=== PATIENT | male | born 1955 | race Caucasian/White ===

== ENCOUNTER 2018-06-09 22:40 | Emergency (ER) | payer BC ==
[~2018-06-09] VITALS: Ht 182.9 cm; Wt 140.6 kg
--- OUTSIDE RECORDS SUMMARY | 2018-06-09 22:44 | XMS REPORT ---
Author Author YAYA GATES [facility] Address [address] [place] [address] Care Team Providers Care Security Sme Name Role Phone YAYA GATES Unavailable PROBLEMS Type Condition ICD9-CM Code XCQ95-LD Code Onset Dates Condition Status SNOMED Code Problem Dental examination Z01.20 Active [id number] ALLERGIES No Known Allergies SOCIAL HISTORY Never Assessed PLAN OF CARE Activity Details Follow Up [facility]AN Reason:MILKA/possible restorative VITAL SIGNS Blood pressure systolic 123 mmHg 2016-11-07 Blood pressure diastolic 71 mmHg 2016-11-07 MEDICATIONS Medication Instructions Dosage Frequency Start Date End Date Duration Status Bystolic 5 MG Orally Once a day 1 tablet 24h Active Amlodipine Besylate 10 MG Orally Once a day 1 tablet 24h Active Meloxicam 15 MG Orally Once a day 1 tablet 24h Active Benicar 40 MG Orally Once a day 1 tablet 24h Active RESULTS No Results PROCEDURES Procedure Date Ordered Result Body Site INTRAORL-PERIAPICAL 1 FILM [id number] November 07, 2016 INTRAORL-PERIAPICAL 1 FILM [id number] November 07, 2016 Billing Notes on claim November 07, 2016 PROPHYLAXIS - ADULT November 07, 2016 [facility] Employee/Board adjustment November 07, 2016 INTRAORL-PERIAPICAL 1 FILM [id number] November 07, 2016 INTRAORL-PERIAPICAL 1 FILM [id number] November 07, 2016 PANORAMIC FILM SEE ALSO CODE 08139 November 07, 2016 BITEWINGS - FOUR FILMS November 07, 2016 IMMUNIZATIONS No Known Immunizations MEDICAL (GENERAL) HISTORY Type Description Date Medical History HTN Surgical History left total knee replacement 06/19/2016 Surgical History appendectomy 1985 Hospitalization History see above surgeries
--- OUTSIDE RECORDS SUMMARY | 2018-06-09 22:44 | XMS REPORT | Continuity of Care Document ---
Author Author [facility] Organization [facility] Address Unknown Phone Unavailable Allergies There is no data. Medications There is no data. Problems There is no data. Procedures There is no data. Results There is no data. Encounters ACCT No. Visit Date/Time Discharge Status Pt. Type Provider Facility Loc./Unit Complaint [id number] 04/07/2013 13:29:00 04/07/2013 23:59:59 [facility] Outpatient [id number] 07/28/2010 07:59:00 07/28/2010 23:59:59 [facility] Outpatient FLAVIO MADDOX DDS
[2018-06-10] MEDS ORDERED: ONDANSETRON 4 MG/2 ML (SDV) Z0FRAN IVP ONE
[2018-06-10] MEDS ORDERED: PIPERACILLIN SODIUM/TAZOBACTAM 4.5 GM in NS (IVPB) 100 ML IV ONE ×2
[2018-06-10 00:02] LABS: BASOPHILS % (AUTO) 0 % (0-10); EOSINOPHILS % (AUTO) 0 % (0-10); HEMATOCRIT 47 % (40-54); HEMOGLOBIN 16.5 G/DL (13.3-17.7); LYMPHOCYTES # (AUTO) 0.5 X 10^3 (1.0-4.0); LYMPHOCYTES % (AUTO) 5 % (12-44); MEAN CORPUSCULAR HEMOGLOBIN 32 PG (25-34); MEAN CORPUSCULAR HGB CONC 35 G/DL (32-36); MEAN CORPUSCULAR VOLUME 91 FL (80-99); MEAN PLATELET VOLUME 11.1 FL (7.4-10.4); MONOCYTES # (AUTO) 0.9 X 10^3 (0.0-1.0); MONOCYTES % (AUTO) 10 % (0-12); NEUTROPHILS # (AUTO) 7.7 X 10^3 (1.8-7.8); NEUTROPHILS % (AUTO) 85 % (42-75); PLATELET COUNT 115 10^3/uL (130-400); RED BLOOD COUNT 5.15 10^6/uL (4.35-5.85); RED CELL DISTRIBUTION WIDTH 13.7 % (10.0-14.5); WHITE BLOOD COUNT 9.1 10^3/uL (4.3-11.0)
[2018-06-10 00:22] LABS: BUN/CREATININE RATIO 12; CARBON DIOXIDE 23 MMOL/L (21-32); CHLORIDE 103 MMOL/L (98-107); CREATININE SERUM 1.01 MG/DL (0.60-1.30); POTASSIUM 3.8 MMOL/L (3.6-5.0); SODIUM 138 MMOL/L (135-145)
[2018-06-10 00:23] LABS: ALANINE AMINOTRANSFERASE 27 U/L (0-55); ALBUMIN 3.9 GM/DL (3.2-4.5); ALKALINE PHOSPHATASE 70 U/L (40-136); BILIRUBIN,TOTAL 1.8 MG/DL (0.1-1.0); CALCIUM 9.2 MG/DL (8.5-10.1); GFR ESTIMATED > 60; GLUCOSE 114 MG/DL (70-105); TOTAL PROTEIN 7.1 GM/DL (6.4-8.2)
[2018-06-10 00:35] LABS: BAND NEUTROPHILS 4 %; LYMPHOCYTES % (MANUAL) 3 %; MONOCYTES % (MANUAL) 7 %; NEUTROPHILS % (MANUAL) 86 %; RBC MORPH NORMAL
[2018-06-10 00:48] LABS: INR 1.1 (0.8-1.4); PROTHROMBIN TIME PATIENT 13.8 SEC (12.2-14.7)
[2018-06-10] MEDS ORDERED: CEPH-507 PO (01:08)
--- NOTE | 2018-06-10 01:08 | ED General ---
General Chief Complaint: Skin/Wound Problems Stated Complaint: L LEG REDNESS Nursing Triage Note: Cellulitis to left leg since this morning. Pt has not felt good this weekend with nausea and chills. Pt stated it was from knee down and sore. Pt's leg is red, warm and tender to touch. Nursing Sepsis Screen: No Definite Risk Source of Information: Patient Exam Limitations: No Limitations History of Present Illness Date Seen by Provider: Jun 09, 2018 Time Seen by Provider: 23:53 Initial Comments This 62-year-old gentleman presents to the emergency room with complaints of left lower leg pain and erythema suggestive of cellulitis. Symptoms are present from the ankle to just below the knee. He has not been feeling well for couple of days. He has felt chilled and nauseated. He denies any actual fever. The leg is tender even to light palpation. Allergies and Home Medications Allergies Coded Allergies: No Known Drug Allergies (Unverified , 06/09/18) Home Medications Cephalexin 500 Mg Capsule, 500 MG PO QID Prescribed by: ANIBAL VILLASEÑOR on 06/10/18 0108 Patient Home Medication List Home Medication List Reviewed: Yes Review of Systems Review of Systems Constitutional: see HPI EENTM: no symptoms reported Respiratory: no symptoms reported Cardiovascular: no symptoms reported Gastrointestinal: see HPI Genitourinary: no symptoms reported Musculoskeletal: no symptoms reported Skin: see HPI Psychiatric/Neurological: No Symptoms Reported Hematologic/Lymphatic: No Symptoms Reported Immunological/Allergic: no symptoms reported Past Actyrqt-Iaxqal-Gjetqk Hx Patient Social History Recent Foreign Travel: No Contact w/Someone Who Travel: No Recent Infectious Disease Expo: No Past Medical History Surgeries: No Respiratory: No Cardiac: Yes Hypertension Neurological: No Reproductive Disorders: No Genitourinary: No Gastrointestinal: No Musculoskeletal: No Endocrine: No HEENT: No Cancer: No Psychosocial: No Integumentary: No Physical Exam Vital Signs Vital Signs - First Documented 06/09/18 23:15 Temp 99.4 Pulse 101 Resp 20 B/P (MAP) 139/96 (110) Pulse Ox 95 O2 Delivery Room Air Capillary Refill : Less Than 3 Seconds Height, Weight, BMI Height: 6'0" Weight: 310lbs. oz. 140.560063ad; BMI Method:Stated General Appearance: No Apparent Distress, WD/WN HEENT: PERRL/EOMI, Normal ENT Inspection Neck: Normal Inspection Respiratory: Lungs Clear, Normal Breath Sounds, No Accessory Muscle Use, No Respiratory Distress Cardiovascular: No Edema, No Murmur, Tachycardia Gastrointestinal: Non Tender, Soft Extremity: Normal Capillary Refill, Other (blanching erythematous rash between the left ankle and left knee that is warm and tender to the touch) Neurologic/Psychiatric: Alert, Oriented x3, No Motor/Sensory Deficits, Normal Mood/Affect, manager business continuity II-XII Norm as Tested Skin: Normal Color, Warm/Dry Focused Exam Lactate Level 06/09/18 23:55: Lactic Acid Level 0.82 Lactic Acid Level Progress/Results/Core Measures Suspected Sepsis Recent Fever Within 48 Hours: No Infection Criteria Present: Suspected New Infection New/Unexplained Altered Menta: No Sepsis Screen: No Definite Risk SIRS Temperature:99.4 Pulse: 101 Respiratory Rate: 20 Laboratory Tests 06/09/18 23:55: White Blood Count 9.1 Blood Pressure 139 /96 Mean: 110 06/09/18 23:55: Lactic Acid Level 0.82 Laboratory Tests 06/09/18 23:55: Creatinine 1.01, INR Comment 1.1, Platelet Count 115L, Total Bilirubin 1.8H Results/Orders Lab Results Laboratory Tests Test 06/09/18 23:55 Range/Units White Blood Count 9.1 4.3-11.0 10^3/uL Red Blood Count 5.15 4.35-5.85 10^6/uL Hemoglobin 16.5 13.3-17.7 G/DL Hematocrit 47 40-54 % Mean Corpuscular Volume 91 80-99 FL Mean Corpuscular Hemoglobin 32 25-34 PG Mean Corpuscular Hemoglobin Concent 35 32-36 G/DL Red Cell Distribution Width 13.7 10.0-14.5 % Platelet Count 115 L 130-400 10^3/uL Mean Platelet Volume 11.1 H 7.4-10.4 FL Neutrophils (%) (Auto) 85 H 42-75 % Lymphocytes (%) (Auto) 5 L 12-44 % Monocytes (%) (Auto) 10 0-12 % Eosinophils (%) (Auto) 0 0-10 % Basophils (%) (Auto) 0 0-10 % Neutrophils # (Auto) 7.7 1.8-7.8 X 10^3 Lymphocytes # (Auto) 0.5 L 1.0-4.0 X 10^3 Monocytes # (Auto) 0.9 0.0-1.0 X 10^3 Eosinophils # (Auto) 0.0 0.0-0.3 10^3/uL Basophils # (Auto) 0.0 0.0-0.1 10^3/uL Neutrophils % (Manual) 86 % Lymphocytes % (Manual) 3 % Monocytes % (Manual) 7 % Band Neutrophils 4 % Blood Morphology Comment NORMAL Prothrombin Time 13.8 12.2-14.7 SEC INR Comment 1.1 0.8-1.4 Activated Partial Thromboplast Time 37 H 24-35 SEC Sodium Level 138 135-145 MMOL/L Potassium Level 3.8 3.6-5.0 MMOL/L Chloride Level 103 98-107 MMOL/L Carbon Dioxide Level 23 21-32 MMOL/L Anion Gap 12 5-14 MMOL/L Blood Urea Nitrogen 12 7-18 MG/DL Creatinine 1.01 0.60-1.30 MG/DL Estimat Glomerular Filtration Rate > 60 BUN/Creatinine Ratio 12 Glucose Level 114 H 70-105 MG/DL Lactic Acid Level 0.82 0.50-2.00 MMOL/L Calcium Level 9.2 8.5-10.1 MG/DL Corrected Calcium 9.3 8.5-10.1 MG/DL Total Bilirubin 1.8 H 0.1-1.0 MG/DL Aspartate Amino Transf (AST/SGOT) 24 5-34 U/L Alanine Aminotransferase (ALT/SGPT) 27 0-55 U/L Alkaline Phosphatase 70 40-136 U/L C-Reactive Protein High Sensitivity 17.40 H 0.00-0.50 MG/DL Total Protein 7.1 6.4-8.2 GM/DL Albumin 3.9 3.2-4.5 GM/DL My Orders Orders - ANIBAL KELLEY MD Hs C Reactive Protein (06/09/18 23:57) Piperacillin Sodium/Tazobactam (Zosyn Vi (06/10/18 00:00) Ondansetron Injection (Zofran Injectio (06/10/18 00:00) Medications Given in ED Vital Signs/I&O Capillary Refill : Less Than 3 Seconds Blood Pressure Mean: 110 Progress Note : Progress Note Labs and blood culture were obtained. Patient was treated with Zosyn for cellulitis. He did not meet septic criteria. He was offered admission for further IV antibiotic therapy. He declines admission and wants to try treatment on outpatient oral medications first. Keflex was prescribed. Departure Impression Primary Impression: Left leg cellulitis Disposition: HOME, SELF-CARE Condition: Improved Departure-Patient Inst. Decision time for Depature: 01:04 Referrals: TEAGAN INMAN MD (PCP/Family) Primary Care Physician Patient Instructions: Cellulitis (Skin Infection), Adult (DC) Add. Discharge Instructions: Take your antibiotics as prescribed. For pain you may take ibuprofen up to 600 mg every 6 hours as needed. You may add Tylenol (acetaminophen) up to 1000 mg every 6 hours as needed for additional pain relief. Return to care if symptoms are worsening or if you develop fever over 100. Elevate your foot and leg to the level of your heart is much as possible. Follow-up with your primary care provider soon as possible. Call later this morning for an appointment. All discharge instructions reviewed with patient and/or family. Voiced understanding. Scripts Cephalexin (Keflex) 500 Mg Capsule 500 MG PO QID, #40 CAP Prov: ANIBAL KELLEY MD 06/10/18 Copy Copies To 1: TEAGAN INMAN MD, JOSHUA T MD Jun 10, 2018 01:08
[2018-06-10 01:36] VITALS: BP 126/84
== END 2018-06-10 01:36 | disposition home or self-care (01) ==
LOC: ER 22:40 → EDUNIT# 22:40 → ER 06-10 01:36
DX: L03.116 Cellulitis of left lower limb (principal); I10 Essential (primary) hypertension
CPT/HCPCS: 36415; 80053; 83605; 85007; 85027; 85610; 85730; 86141; 87040

== ENCOUNTER → 2018-06-11 | Outpatient (CLI) | payer BC ==
[~2018-06-11] MED LIST: CEPH-507 PO
--- NOTE | 2018-06-11 09:40 | Diagnostic Imaging Report ---
PROCEDURE: US left lower extremity venous. TECHNIQUE: Multiple real-time grayscale images were obtained over the left lower extremity in various projections. Additional duplex Doppler and color Doppler images were also obtained. INDICATION: Swelling. The femoropopliteal deep venous system throughout the left leg was widely patent. No deep or superficial thrombus identified no mass or fluid collection documented. IMPRESSION: Normal negative unilateral left lower extremity venous Doppler and ultrasound exam. Dictated by: Dictated on workstation # [id number]
== END ==
LOC: RAD 08:32
PROVIDERS: ATTEND Family Medicine
DX: M79.89 Other specified soft tissue disorders (principal)

== ENCOUNTER 2018-07-30 20:50 | Emergency (ER) | payer BC ==
[~2018-07-30] VITALS: Ht 182.9 cm; Wt 140.6 kg
--- OUTSIDE RECORDS SUMMARY | 2018-07-30 20:55 | XMS REPORT | Continuity of Care Document ---
Author Author [facility] Organization [facility] Address Unknown Phone Unavailable Allergies Active Description Code Type Severity Reaction Onset Reported/Identified Relationship to Patient Clinical Status Yes No Known Drug Allergies [id number] Drug Allergy Unknown N/A 06/09/2018 Medications There is no data. Problems Date Dx Coded Attending Type Code Diagnosis Diagnosed By 06/10/2018 WARREN FINLEY, ANIBAL Flores Ot I10 ESSENTIAL (PRIMARY) HYPERTENSION 06/10/2018 WARREN FINLEY, ANIBAL Flores Ot L03.116 CELLULITIS OF LEFT LOWER LIMB 06/10/2018 ANIBAL KELLEY MD, Ot M79.662 PAIN IN LEFT LOWER LEG 06/12/2018 TEAGAN INMAN MD Ot M79.89 OTHER SPECIFIED SOFT TISSUE DISORDERS 06/27/2018 TEAGAN INMAN MD, Ot M79.89 OTHER SPECIFIED SOFT TISSUE DISORDERS Procedures There is no data. Results Test Result Range Complete blood count (CBC) with automated white blood cell (WBC) differential - 06/09/18 23:55 Blood leukocytes automated count (number/volume) 9.1 10*3/uL 4.3-11.0 Blood erythrocytes automated count (number/volume) 5.15 10*6/uL 4.35-5.85 Venous blood hemoglobin measurement (mass/volume) 16.5 g/dL 13.3-17.7 Blood hematocrit (volume fraction) 47 % 40-54 Automated erythrocyte mean corpuscular volume 91 [foz_us] 80-99 Automated erythrocyte mean corpuscular hemoglobin (mass per erythrocyte) 32 pg 25-34 Automated erythrocyte mean corpuscular hemoglobin concentration measurement ( mass/volume) 35 g/dL 32-36 Automated erythrocyte distribution width ratio 13.7 % 10.0-14.5 Automated blood platelet count (count/volume) 115 10*3/uL 130-400 Automated blood platelet mean volume measurement 11.1 [foz_us] 7.4-10.4 Automated blood neutrophils/100 leukocytes 85 % 42-75 Automated blood lymphocytes/100 leukocytes 5 % 12-44 Blood monocytes/100 leukocytes 10 % 0-12 Automated blood eosinophils/100 leukocytes 0 % 0-10 Automated blood basophils/100 leukocytes 0 % 0-10 Blood neutrophils automated count (number/volume) 7.7 10*3 1.8-7.8 Blood lymphocytes automated count (number/volume) 0.5 10*3 1.0-4.0 Blood monocytes automated count (number/volume) 0.9 10*3 0.0-1.0 Automated eosinophil count 0.0 10*3/uL 0.0-0.3 Automated blood basophil count (count/volume) 0.0 10*3/uL 0.0-0.1 Blood lactic acid measurement (moles/volume) - 06/09/18 23:55 Blood lactic acid measurement (moles/volume) 0.82 mmol/L 0.50-2.00 Comprehensive metabolic panel - 06/09/18 23:55 Serum or plasma sodium measurement (moles/volume) 138 mmol/L 135-145 Serum or plasma potassium measurement (moles/volume) 3.8 mmol/L 3.6-5.0 Serum or plasma chloride measurement (moles/volume) 103 mmol/L 98-107 Carbon dioxide 23 mmol/L 21-32 Serum or plasma anion gap determination (moles/volume) 12 mmol/L 5-14 Serum or plasma urea nitrogen measurement (mass/volume) 12 mg/dL 7-18 Serum or plasma creatinine measurement (mass/volume) 1.01 mg/dL 0.60-1.30 Serum or plasma urea nitrogen/creatinine mass ratio 12 NRG Serum or plasma creatinine measurement with calculation of estimated glomerular filtration rate > NRG Serum or plasma glucose measurement (mass/volume) 114 mg/dL 70-105 Serum or plasma calcium measurement (mass/volume) 9.2 mg/dL 8.5-10.1 Serum or plasma total bilirubin measurement (mass/volume) 1.8 mg/dL 0.1-1.0 Serum or plasma alkaline phosphatase measurement (enzymatic activity/volume) 70 U/L 40-136 Serum or plasma aspartate aminotransferase measurement (enzymatic activity/ volume) 24 U/L 5-34 Serum or plasma alanine aminotransferase measurement (enzymatic activity/volume ) 27 U/L 0-55 Serum or plasma protein measurement (mass/volume) 7.1 g/dL 6.4-8.2 Serum or plasma albumin measurement (mass/volume) 3.9 g/dL 3.2-4.5 CALCIUM CORRECTED 9.3 mg/dL 8.5-10.1 Blood manual differential performed detection - 06/09/18 23:55 Blood monocytes/100 leukocytes 7 % NRG Manual blood segmented neutrophils/100 leukocytes 86 % NRG Blood band neutrophils/100 leukocytes 4 % NRG Manual blood lymphocytes/100 leukocytes 3 % NRG Blood erythrocyte morphology finding identification NORMAL NRG Serum or plasma C reactive protein measurement (mass/volume) - 06/09/18 23:55 Serum or plasma C reactive protein measurement (mass/volume) 17.40 mg/dL 0.00-0.50 PT panel in platelet poor plasma by coagulation assay - 06/09/18 23:55 Prothrombin time (PT) in platelet poor plasma by coagulation assay 13.8 s 12.2-14.7 INR in platelet poor plasma or blood by coagulation assay 1.1 0.8-1.4 Activated partial thromboplastin time (aPTT) in platelet poor plasma bycoagulation assay - 06/09/18 23:55 Activated partial thromboplastin time (aPTT) in platelet poor plasma bycoagulation assay 37 s 24-35 Bacterial blood culture - 06/09/18 23:55 Bacterial blood culture NG NRG Bacterial blood culture - 06/10/18 00:43 Bacterial blood culture NG NRG Encounters ACCT No. Visit Date/Time Discharge Status Pt. Type Provider Facility Loc./Unit Complaint [id number] 06/11/2018 08:32:00 06/11/2018 23:59:59 [facility] Outpatient HENNY FINLEY, TEAGAN Mane [facility] RAD SWELLING OF LOWER LEG LT [id number] 06/09/2018 22:40:00 06/10/2018 01:36:00 DIS Emergency WARREN IFNLEY, ANIBAL Flores [facility] ER L LEG REDNESS [id number] 04/07/2013 13:29:00 04/07/2013 23:59:59 CLS Outpatient [id number] 07/28/2010 07:59:00 07/28/2010 23:59:59 CLS Outpatient TAN HESS, FLAVIO Delgado
[2018-07-30 21:14] LABS: BASOPHILS % (AUTO) 0 % (0-10); EOSINOPHILS % (AUTO) 0 % (0-10); HEMATOCRIT 47 % (40-54); HEMOGLOBIN 16.7 G/DL (13.3-17.7); LYMPHOCYTES # (AUTO) 0.3 X 10^3 (1.0-4.0); LYMPHOCYTES % (AUTO) 3 % (12-44); MEAN CORPUSCULAR HEMOGLOBIN 32 PG (25-34); MEAN CORPUSCULAR HGB CONC 35 G/DL (32-36); MEAN CORPUSCULAR VOLUME 90 FL (80-99); MEAN PLATELET VOLUME 11.2 FL (7.4-10.4); MONOCYTES % (AUTO) 8 % (0-12); NEUTROPHILS # (AUTO) 11.3 X 10^3 (1.8-7.8); NEUTROPHILS % (AUTO) 90 % (42-75); PLATELET COUNT 142 10^3/uL (130-400); RED CELL DISTRIBUTION WIDTH 13.2 % (10.0-14.5); WHITE BLOOD COUNT 12.7 10^3/uL (4.3-11.0)
[2018-07-30 21:26] LABS: PROTHROMBIN TIME PATIENT 13.2 SEC (12.2-14.7)
[2018-07-30 21:35] LABS: ALANINE AMINOTRANSFERASE 20 U/L (0-55); ALBUMIN 4.3 GM/DL (3.2-4.5); ALKALINE PHOSPHATASE 86 U/L (40-136); BILIRUBIN,TOTAL 1.9 MG/DL (0.1-1.0); BUN/CREATININE RATIO 12; CALCIUM 9.2 MG/DL (8.5-10.1); CARBON DIOXIDE 22 MMOL/L (21-32); CHLORIDE 104 MMOL/L (98-107); GFR ESTIMATED > 60; GLUCOSE 153 MG/DL (70-105); POTASSIUM 3.9 MMOL/L (3.6-5.0); SODIUM 137 MMOL/L (135-145); TOTAL PROTEIN 7.3 GM/DL (6.4-8.2)
[2018-07-30 21:35] LABS: BILIRUBIN,URINE NEGATIVE (NEGATIVE); CLARITY,URINE VERY CLOUDY; COLOR,URINE AMBER; GLUCOSE, URINE (UA) 1+ (NEGATIVE); KETONES,URINE 2+ (NEGATIVE); LEUKOCYTE ESTERASE ,URINE 3+ (NEGATIVE); NITRITE,URINE POSITIVE (NEGATIVE); PH,URINE 5 (5-9); PROTEIN,URINE 3+ (NEGATIVE); UROBILINOGEN,URINE 1 MG/DL (NORMAL)
[2018-07-30] MEDS ORDERED: NS IV 1000 ML 1,000 ML IV ONE ×2 (21:36→22:30)
[2018-07-30 21:43] LABS: BAND NEUTROPHILS 0 %; BASOPHILS % (MANUAL) 0 %; EOSINOPHILS % (MANUAL) 1 %; LYMPHOCYTES % (MANUAL) 3 %; MONOCYTES % (MANUAL) 3 %; NEUTROPHILS % (MANUAL) 93 %
[2018-07-30 21:44] LABS: RBC MORPH NORMAL
[2018-07-30 21:46] LABS: BACTERIA,URINE LARGE /HPF; RBC,URINE 50-100 /HPF; WBC,URINE TNTC /HPF
--- NOTE | 2018-07-30 21:46 | ED GU-Male ---
General Chief Complaint: -Male Stated Complaint: BURNING WHILE URINATING Nursing Triage Note: PT AMB TO ROOM #6 W/O DIFFICULTY. A&OX4.. C/O DYSURIA, URGENCY, AND HESITANCY WHILE URINATING THAT BEGAN ON THIS DAY. PT REPORTS CHANGE IN URINE COLOR. PT STATES, "I FEEL LIKE I CAN'T GET IT ALL OUT." REPORTS CHILLS TODAY @ APPROX 1500. PT REPORTS BURNING PAIN WHILE URINATING. Source: patient Exam Limitations: no limitations History of Present Illness Date Seen by Provider: Jul 30, 2018 Time Seen by Provider: 20:54 Initial Comments This 62-year-old gentleman presents to the emergency room with complaints of dysuria and difficulty urinating that just started today. He also developed chills on his way to the hospital. He is afebrile. He denies any history of prostate problems. He is noted to be tachycardic with a heart rate around 130 on arrival to the ER. Urine is cloudy on the urine collection. Bladder volume on scanner was about 100 mL. He voided about 10-15 mL after the scan. Patient also had a recent cellulitis of the left lower extremity and is still experiencing some swelling in that leg without pain. He denies any chest pain or shortness of breath. Allergies and Home Medications Allergies Coded Allergies: No Known Drug Allergies (Unverified , 06/09/18) Home Medications Cephalexin 500 Mg Capsule, 500 MG PO QID Prescribed by: ANIBAL VILLASEÑOR on 06/10/18 0108 Patient Home Medication List Home Medication List Reviewed: Yes Review of Systems Review of Systems Constitutional: see HPI EENTM: no symptoms reported Respiratory: no symptoms reported Cardiovascular: see HPI Gastrointestinal: no symptoms reported Genitourinary: see HPI Musculoskeletal: no symptoms reported Skin: no symptoms reported Psychiatric/Neurological: No Symptoms Reported Endocrine: No Symptoms Reported Hematologic/Lymphatic: No Symptoms Reported Past Hmwwkzk-Uzxebl-Qbtadj Hx Past Med/Social Hx: Reviewed Nursing Past Med/Soc Hx Patient Social History Alcohol Use: Rarely Uses Number of Drinks Today: 1 Alcohol Beverage of Choice: Whiskey Recreational Drug Use: No Smoking Status: Never a Smoker 2nd Hand Smoke Exposure: No Recent Foreign Travel: No Contact w/Someone Who Travel: No Recent Infectious Disease Expo: No Recent Hopitalizations: No Seasonal Allergies Seasonal Allergies: No Past Medical History Surgeries: Yes (X2 TOTAL KNEE REPLACEMENT ) Appendectomy, Orthopedic Respiratory: No Cardiac: Yes Hypertension Neurological: No Reproductive Disorders: No Genitourinary: No Gastrointestinal: No Musculoskeletal: No Endocrine: No HEENT: No Cancer: No Psychosocial: No Integumentary: Yes (Cellulitis of left leg) Blood Disorders: No Physical Exam Vital Signs Vital Signs - First Documented 07/30/18 20:57 Temp 99.3 Pulse 130 Resp 20 B/P (MAP) 134/93 (107) Pulse Ox 94 O2 Delivery Room Air Capillary Refill : Less Than 3 Seconds Height, Weight, BMI Height: 6'0" Weight: 310lbs. oz. 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, no motor/sensory deficits, alert, normal mood/affect, oriented x 3 Skin: normal color, warm/dry Focused Exam Lactate Level 07/30/18 21:30: Lactic Acid Level 1.61 Lactic Acid Level Laboratory Tests Test 07/30/18 21:30 Lactic Acid Level 1.61 MMOL/L (0.50-2.00) Progress/Results/Core Measures Suspected Sepsis Recent Fever Within 48 Hours: No Infection Criteria Present: Suspected New Infection New/Unexplained Altered Menta: No Sepsis Screen: No Definite Risk SIRS Temperature:99.3 Pulse: 130 Respiratory Rate: 20 Laboratory Tests 07/30/18 21:09: White Blood Count 12.7H Blood Pressure 134 /93 Mean: 107 07/30/18 21:30: Lactic Acid Level 1.61 Laboratory Tests 07/30/18 21:09: Creatinine 1.00, INR Comment 1.0, Platelet Count 142, Total Bilirubin 1.9H Results/Orders Lab Results Laboratory Tests Test 07/30/18 21:09 07/30/18 21:25 07/30/18 21:30 Range/Units White Blood Count 12.7 H 4.3-11.0 10^3/uL Red Blood Count 5.29 4.35-5.85 10^6/uL Hemoglobin 16.7 13.3-17.7 G/DL Hematocrit 47 40-54 % Mean Corpuscular Volume 90 80-99 FL Mean Corpuscular Hemoglobin 32 25-34 PG Mean Corpuscular Hemoglobin Concent 35 32-36 G/DL Red Cell Distribution Width 13.2 10.0-14.5 % Platelet Count 142 130-400 10^3/uL Mean Platelet Volume 11.2 H 7.4-10.4 FL Neutrophils (%) (Auto) 90 H 42-75 % Lymphocytes (%) (Auto) 3 L 12-44 % Monocytes (%) (Auto) 8 0-12 % Eosinophils (%) (Auto) 0 0-10 % Basophils (%) (Auto) 0 0-10 % Neutrophils # (Auto) 11.3 H 1.8-7.8 X 10^3 Lymphocytes # (Auto) 0.3 L 1.0-4.0 X 10^3 Monocytes # (Auto) 1.0 0.0-1.0 X 10^3 Eosinophils # (Auto) 0.0 0.0-0.3 10^3/uL Basophils # (Auto) 0.0 0.0-0.1 10^3/uL Neutrophils % (Manual) 93 % Lymphocytes % (Manual) 3 % Monocytes % (Manual) 3 % Eosinophils % (Manual) 1 % Basophils % (Manual) 0 % Band Neutrophils 0 % Blood Morphology Comment NORMAL Prothrombin Time 13.2 12.2-14.7 SEC INR Comment 1.0 0.8-1.4 Activated Partial Thromboplast Time 34 24-35 SEC D-Dimer 0.46 0.00-0.49 UG/ML Sodium Level 137 135-145 MMOL/L Potassium Level 3.9 3.6-5.0 MMOL/L Chloride Level 104 98-107 MMOL/L Carbon Dioxide Level 22 21-32 MMOL/L Anion Gap 11 5-14 MMOL/L Blood Urea Nitrogen 12 7-18 MG/DL Creatinine 1.00 0.60-1.30 MG/DL Estimat Glomerular Filtration Rate > 60 BUN/Creatinine Ratio 12 Glucose Level 153 H 70-105 MG/DL Calcium Level 9.2 8.5-10.1 MG/DL Corrected Calcium 9.0 8.5-10.1 MG/DL Total Bilirubin 1.9 H 0.1-1.0 MG/DL Aspartate Amino Transf (AST/SGOT) 24 5-34 U/L Alanine Aminotransferase (ALT/SGPT) 20 0-55 U/L Alkaline Phosphatase 86 40-136 U/L C-Reactive Protein High Sensitivity 1.22 H 0.00-0.50 MG/DL Total Protein 7.3 6.4-8.2 GM/DL Albumin 4.3 3.2-4.5 GM/DL Urine Color EDA H Urine Clarity VERY CLOUDY H Urine pH 5 5-9 Urine Specific [place] 1.025 H 1.016-1.022 Urine Protein 3+ H NEGATIVE Urine Glucose (UA) 1+ H NEGATIVE Urine Ketones 2+ H NEGATIVE Urine Nitrite POSITIVE H NEGATIVE Urine Bilirubin NEGATIVE NEGATIVE Urine Urobilinogen 1 NORMAL MG/DL Urine Leukocyte Esterase 3+ H NEGATIVE Urine RBC (Auto) 5+ H NEGATIVE Urine RBC 50-100 H /HPF Urine WBC TNTC H /HPF Urine Squamous Epithelial Cells NONE /HPF Urine Crystals NONE /LPF Urine Bacteria LARGE H /HPF Urine Casts NONE /LPF Urine Mucus MODERATE H /LPF Urine Culture Indicated YES Lactic Acid Level 1.61 0.50-2.00 MMOL/L My Orders Orders - ANIBAL KELLEY MD Cbc With Automated Diff (07/30/18 21:03) Comprehensive Metabolic Panel (07/30/18 21:03) Blood Culture (07/30/18 21:03) Sputum Culture (07/30/18 21:03) Urinalysis (07/30/18 21:03) Urine Culture (07/30/18 21:03) Protime With Inr (07/30/18 21:03) Partial Thromboplastin Time (07/30/18 21:03) Chest 1 View, Ap/Pa Only (07/30/18 21:03) Saline Lock/Iv-Start (07/30/18 21:03) Saline Lock/Iv-Start (07/30/18 21:03) Vital Signs Adult Sepsis Patie Q15M (07/30/18 21:03) O2 (07/30/18 21:03) Remove Rings In Anticipation O (07/30/18 21:03) Lactic Acid Analyzer (07/30/18 21:03) Hs C Reactive Protein (07/30/18 21:03) Bladder Scan (07/30/18 21:07) Manual Differential (07/30/18 21:09) Fibrin Degradation Products (07/30/18 21:36) Ns Iv 1000 Ml (Sodium Chloride 0.9%) (07/30/18 21:36) Ekg Tracing (07/30/18 21:46) Monitor-Rhythm Ecg Trace Only (07/30/18 21:46) Ceftriaxone For Iv Use (Rocephin For I (07/30/18 22:00) Phenazopyridine Tablet (Pyridium Tablet) (07/30/18 22:00) Ns Iv 1000 Ml (Sodium Chloride 0.9%) (07/30/18 22:30) Medications Given in ED Current Medications Medications Dose Ordered Sig/Theodora Route Start Time Stop Time Status Last Admin Dose Admin Ceftriaxone Sodium 1000 mg/ Sterile Water 10 ml @ 200 mls/hr ONCE ONCE IV 07/30/18 22:00 07/30/18 22:02 DC 07/30/18 22:25 200 MLS/HR Phenazopyridine HCl 200 mg ONCE ONCE PO 07/30/18 22:00 07/30/18 22:01 DC 07/30/18 22:05 200 MG Sodium Chloride 1,000 ml @ 0 mls/hr Q0M ONCE IV 07/30/18 21:36 07/30/18 21:38 DC 07/30/18 21:48 0 MLS/HR Sodium Chloride 1,000 ml @ 0 mls/hr Q0M ONCE IV 07/30/18 22:30 07/30/18 22:32 DC 07/30/18 22:38 0 MLS/HR Vital Signs/I&O 07/30/18 07/30/18 20:57 23:30 Temp 99.3 98.3 Pulse 130 108 Resp 20 22 B/P (MAP) 134/93 (107) 171/85 (113) Pulse Ox 94 96 O2 Delivery Room Air Room Air 07/31/18 00:00 Intake Total 2010 ml Output Total 99 ml Balance 1911 ml Capillary Refill : Less Than 3 Seconds Blood Pressure Mean: 107 Progress Note : Time: 22:31 Progress Note Patient had chills with tachycardia in the 130 range. Septic workup was therefore pursued. Urine was profoundly pyuric. Blood cultures and lactic acid were drawn. Rocephin was initiated. HR decreased to 110 after 1 liter of NS. Pyridium was given for patient's discomfort. Patient met sepsis criteria with tachycardia and leukocytosis. D-dimer was obtained due to tachycardia in the presence of unilateral leg swelling and was normal. EKG demonstrated sinus tachycardia. Transfer due to admission diversion was discussed with patient and he agrees to transfer. Transfer was accepted by Dr. Anderson at [facility]. ECG Initial ECG Impression Date: Jul 30, 2018 Initial ECG Impression Time: 21:51 Initial ECG Rate: 115 Initial ECG Rhythm: S.Tach Comment Sinus tachycardia with no ST elevation or depression. No axis deviation. Right bundle branch block. Diagnostic Imaging Diagonstic Imaging: Xray Plain Films/CT/US/NM/MRI: chest Comments Chest x-ray viewed by me and report reviewed. See report below: NAME: LENY GATES [facility] REC#: [id number] PT STATUS: REG ER : 1955 PHYSICIAN: ANIBAL KELLEY MD ADMIT DATE: 07/30/18/ER Draft Date of Exam:07/30/18 CHEST 1 VIEW, AP/PA ONLY Portable erect AP chest at 9:11 p.m. INDICATION: Cough. FINDINGS: The heart size is within normal limits and stable when compared to 04/07/13. The lungs are clear. There is no evidence for failure, pneumonia or pleural effusion. The mediastinum is not widened. The osseous structures are intact. IMPRESSION: There is no evidence for an acute cardiopulmonary abnormality. Dictated on workstation # [id number] Dict: [id number]/30/[id number] Trans: 07/30/18 [address] [facility] [id number] Interpreted by: MARILUZ ROLAND MD Departure Impression Primary Impression: Sepsis Qualified Codes: A41.9 - Sepsis, unspecified organism Additional Impressions: Urinary tract infection Qualified Codes: N39.0 - Urinary tract infection, site not specified; R31.9 - Hematuria, unspecified Left leg swelling Disposition: SHT-TRM HOSP Condition: Improved Transfer Time Spoke to Accepting Phy: 22:30 Transfer Progress Notes Transfer to Dr. Anderson at [facility]. Transfer Time: 23:30 Transfer Facility: [facility] Method of Transfer: EMS Departure-Patient Inst. Referrals: TEAGAN INMAN MD (PCP/Family) Primary Care Physician ANIBAL KELLEY MD Jul 30, 2018 21:46
--- NOTE | 2018-07-30 21:51 | Diagnostic Imaging Report ---
Portable erect AP chest at 9:11 p.m. INDICATION: Cough. FINDINGS: The heart size is within normal limits and stable when compared to 04/07/13. The lungs are clear. There is no evidence for failure, pneumonia or pleural effusion. The mediastinum is not widened. The osseous structures are intact. IMPRESSION: There is no evidence for an acute cardiopulmonary abnormality. Dictated by: Dictated on workstation # [id number]
[2018-07-30] MEDS ORDERED: PHENAZOPYRIDINE 100 MG (PYRIDIUM) TABLET PO ONE (22:00)
[2018-07-30] MEDS: cefTRIAXone FOR IV USE 1,000 MG in WATER (STERILE) FOR INJECTION 10 ML IV ONE ×2 (22:05→22:25)
[2018-07-30 23:30] VITALS: BP 171/85
== END 2018-07-30 23:30 | disposition short-term general hospital (02) ==
LOC: EDUNIT# 20:50 → ER 20:51
DX: A41.9 Sepsis, unspecified organism (principal); N39.0 Urinary tract infection, site not specified; M79.89 Other specified soft tissue disorders; I10 Essential (primary) hypertension; Z90.49 Acquired absence of other specified parts of digestive tract
CPT/HCPCS: 36415; 71045; 80053; 81000; 83605; 85007; 85027; 85379; 85610; 85730; 86141; 87040; 87077; 87088; 87186; 93005; 93041

== ENCOUNTER 2019-11-05 09:11 | Outpatient (RCR) | payer BC ==
[~2019-11-05] VITALS: Ht 182.9 cm; Wt 146.3 kg
[~2019-11-05 09:11] MED LIST changes: +AMLO10TA7 PO; +NEBI5TAB8 PO; +OLME40TA18 PO
== END 2019-11-05 16:24 | disposition home or self-care (01) ==
LOC: PREOP 09:11
PROVIDERS: ATTEND Surgery
DX: Z01.812 Encounter for preprocedural laboratory examination (principal); Z11.59 Encounter for screening for other viral diseases
CPT/HCPCS: 87635

== ENCOUNTER → 2021-10-30 | Outpatient (CLI) | payer BC ==
[~2021-10-30] MED LIST changes: +AMLO-251 PO; -AMLO10TA7 PO; +CATHETER FLUSH 10 ML SYR IVP PRN
[2021-10-30 08:58] VITALS: BP 153/87
--- NOTE | 2021-10-30 11:26 | Cardiology Stress Test Report ---
Stress Test Report Date of Procedure/Referring: Date of Procedure: October 30, 2021 PCP Kamilla Penaloza MD Admitting Physician Kamilla Penaloza MD Indications: Abnormal ECG Baseline Heart Rate: 87 Baseline Blood Pressure: Blood Pressure Systolic: 153 Blood Pressure Diastolic: 87 Vital Signs Date Time Temp Pulse Resp B/P (MAP) Pulse Ox O2 Delivery O2 Flow Rate FiO2 10/30/21 08:58 87 153/87 (109) Baseline Vital Signs Vital Signs Date Time Temp Pulse Resp B/P (MAP) Pulse Ox O2 Delivery O2 Flow Rate FiO2 10/30/21 08:58 87 153/87 (109) Baseline EKG: Baseline EKG: RBBB Summary: After explaining the procedure and details to the patient, he signed the consent and was brought to the stress nuclear laboratory. Patient exercised on standard Sandro protocol, EKG, heart rate and blood pressure were monitored continuously, resting and stress doses of radio tracer were injected, imaging was acquired and reviewed in the short axis, horizontal long axis and vertical long axis views Patient was able to exercise for a total of 4 minutes on Sandro protocol, METs 5.8 Maximum heart rate 144 Maximum blood pressure 198/76 Stress EKG, Minimal nondiagnostic changes Recovery EKG, Return to baseline TID: 0.91 SSS: 4 SDS: 2 EF: 63 Conclusion: 1. Fair exercise tolerance for a total of 4 minutes on standard Sandro protocol, 5.8 METS achieving 92% of maximum expected heart rate 2. Appropriate heart rate response to exercise with hypertensive response to exercise peak blood pressure 198/76 return to baseline during recovery 3. Baseline right bundle branch block with nondiagnostic EKG changes with exercise return to baseline during recovery 4. Diaphragmatic attenuation with decreased uptake involving the mid to apical inferior wall with mild reversibility 5. Normal left ventricular size, ejection fraction 63% Copy Copies To 1: KAMILLA PENALOZA MD, BASHAR J MD October 30, 2021 11:26
== END ==
LOC: CARD 07:30
PROVIDERS: ATTEND Family Medicine
DX: R94.31 Abnormal electrocardiogram [ECG] [EKG] (principal); Z82.41 Family history of sudden cardiac death
CPT/HCPCS: 78452; 93017; A9502

== ENCOUNTER 2021-11-22 09:00 | Day surgery (SDC) | payer BC ==
[~2021-11-22] VITALS: Ht 182.8 cm; Wt 150.2 kg
[2021-11-22] VITALS (9 sets, daily range): BP systolic 116–148; BP diastolic 76–91
[2021-11-22 07:22] LABS: BILIRUBIN,URINE NEGATIVE (NEGATIVE); CLARITY,URINE CLEAR; COLOR,URINE YELLOW; GLUCOSE, URINE (UA) TRACE (NEGATIVE); KETONES,URINE NEGATIVE (NEGATIVE); LEUKOCYTE ESTERASE ,URINE NEGATIVE (NEGATIVE); NITRITE,URINE NEGATIVE (NEGATIVE); PROTEIN,URINE NEGATIVE (NEGATIVE)
[2021-11-22 07:23] LABS: HEMATOCRIT 50 % (40-54); MEAN CORPUSCULAR HEMOGLOBIN 32 pg (25-34); MEAN CORPUSCULAR HGB CONC 34 g/dL (32-36); MEAN CORPUSCULAR VOLUME 95 fL (80-99); MEAN PLATELET VOLUME 11.4 fL (9.0-12.2); PLATELET COUNT 149 10^3/uL (130-400); WHITE BLOOD COUNT 5.3 10^3/uL (4.3-11.0)
[2021-11-22 07:33] LABS: ALBUMIN 3.9 GM/DL (3.2-4.5); POTASSIUM 3.9 MMOL/L (3.6-5.0)
[2021-11-22 07:34] LABS: CALCIUM 8.9 MG/DL (8.5-10.1)
[2021-11-22 07:35] LABS: BACTERIA,URINE NEGATIVE /HPF; SQUAMOUS EPITHELIAL CELL,UR 0-2 /HPF; WBC,URINE 0-2 /HPF
[2021-11-22 07:36] LABS: AMORPHOUS SEDIMENT,UR FEW AMOR URATES /LPF; TOTAL PROTEIN 6.9 GM/DL (6.4-8.2)
[2021-11-22 07:37] LABS: BILIRUBIN,TOTAL 0.8 MG/DL (0.1-1.0)
[2021-11-22 07:39] LABS: CREATININE SERUM 1.07 MG/DL (0.60-1.30)
[2021-11-22 07:49] LABS: INR 0.9 (0.8-1.4); PROTHROMBIN TIME PATIENT 12.6 SEC (12.2-14.7)
--- NOTE | 2021-11-22 07:50 | Diagnostic Imaging Report ---
INDICATION: Abnormal stress test with shortness of breath. Comparison with 08/27/2018. Heart is upper limits of normal. The lungs are well-aerated and clear. No pneumothorax or pleural effusion. IMPRESSION: Stable portable chest. Dictated by: Dictated on workstation # [id number]
--- NOTE | 2021-11-22 08:45 | Conscious Sedation/ASA ---
Conscious Sedation Pre-Proced Time 08:00 ASA Score 3 For ASA 3 and 4: Consider anesthesia and medical clearance. Also, for patients with a history of failed moderate sedation consider anesthesia. Airway Lungs Heart ASA score ASA 1: a normal healthy patient ASA 2: a patient with a mild systemic disease (mid diabetes, controlled hypertension, obesity x ASA 3: a patient with a severe systemic disease that limits activity (angina, COPD, prior Myocardial infarction) ASA 4: a patient with an incapacitating disease that is a constant threat to life (CHF, renal failure) ASA 5: a moribund patient not expected to survive 24 hrs. (ruptured aneurysm) ASA 6: a declared brain- patient whose organs are being harvested. For emergent operations, add the letter E after the classification Mallampati Classification Grade 3 Sedation Plan Analgesia, Amnesia, Plan communicated to team members, Discussed options with patient/fam, Discussed risks with patient/fam The patient is an appropriate candidate to undergo the planned procedure, sedation, and anesthesia. The patient immediately re-assessed prior to indication. DOLLY CARTER MD Nov 22, 2021 08:45
--- NOTE | 2021-11-22 08:47 | Discharge Inst-Post CATH ---
Discharge Inst-CATH/EP Problems Reviewed?: Yes Post Cardiac Cath/EP D/C Inst Follow Up/Plan Hold metformin for [address] Plaza's office in 2 to 4 weeks <b>CARDIAC CATH/EP PROCEDURE DISCHARGE INSTRUCTIONS</b> ACTIVITY * Go Home directly and rest. * Limit activity of the leg (or wrist if it was used) for 7 days including aerobics, swimming, jogging, bicycling, etc. * Restrict stair-climbing for 7 days if possible, if not, climb up with your non-cath leg, then bring together on the same step. * Avoid lifting, pushing, pulling or excessive movement of the affected extremity for 7 days. * Customary sexual activity may be resumed after 2 days-use caution not to use a position that strains or causes pain to the affected extremity. * No driving for 24 hours. * NO SMOKING. * Avoid straining for bowel movements for 7 days. * Gentle walking on level ground is allowed. * Returning to work will depend on the type of procedure and the results. Your doctor will discuss this with you. CALL YOUR DOCTOR FOR ANY OF THE FOLLOWING: *If bleeding from the puncture site occurs- Apply gentle pressure to site with clean cloth and call your doctor or EMS. * If a knot or lump forms under the skin, increases in size, or causes pain. * If bruising appears to be worsening or moving further down your leg instead of disappearing. * Temperature above 101 F. CARE OF YOUR GROIN INCISION; * Bruising or purple discoloration of the skin near the puncture site is common. * You may shower only, no bathtub bathing for 5 days. Be careful to avoid slipping as your leg may feel stiff. * If a closure device was used on your femoral artery, please see the attached guide regarding care of the device and your leg. * Leave dressing on FOR 24 hours. CARE OF YOUR WRIST INCISION; * Bruising or purple discoloration of the skin near the puncture site is common. * You may shower. * DO NOT submerge wrist. * Leave dressing on FOR 24 hours. DOLLY PLAZA MD Nov 22, 2021 08:47
--- NOTE | 2021-11-22 08:50 | Cardiac Cath Report ---
Cardiac Cath Report Physician (s)/Textile Finisher (s) Physician DOLLY CARTER MD Pre-Procedure Diagnosis Pre-Procedure Diagnosis: Coronary artery disease Post-Procedure Note Procedure Start Date: Nov 22, 2021 Name of Procedure: Left heart catheterization Findings/Procedure Note PROCEDURE NOTE: 66-year-old gentleman with history of hypertension, hyperlipidemia, diabetes mellitus, had an abnormal stress test, scheduled for cardiac catheterization possible PTCA. After explaining the procedure to the patient, all pros and cons were explained, all questions were answered. The patient signed the consent and then he was placed on the cardiac catheterization laboratory. Groin was prepped SL fashion local anesthesia was used. Sheath placed in the right radial artery, [place] catheter was advanced to the left ventricular cavity, pressure was measured, pullback LV to aorta was done, engaged the right and left coronary system, angiogram was done. At the end of the procedure the sheath was removed. Vascular band was used FINDINGS: Hemodynamics LV 101/9, end-diastolic pressure of 9 Aorta 99/69 mean of 60 ANATOMY: Left Main is free of obstructive disease Left Anterior Descending has mild disease nonobstructive disease Left Circumflex has mild disease nonobstructive disease Right Coronary Artery is a large dominant artery with slow flow distally due to small vessel disease nonobstructive disease LV Gram was not done, pressure was measured CONCLUSION: 1. Mild coronary artery disease nonobstructive disease, slow flow in the dominant right coronary artery due to small vessel disease distally 2. Normal left ventricular end-diastolic pressure DISCUSSION AND RECOMMENDATION: Continue to maximize medical therapy Anesthesia Type: Conscious Sedation Estimated blood loss (mL): 10 ml Contrast Amount: 28 ml Total Radiation Dose: 490 mGy Post-Procedure Diagnosis Post-operative diagnosis: Coronary artery disease Hypertension Hyperlipidemia Diabetes mellitus DOLLY CARTER MD Nov 22, 2021 08:50
[~2021-11-22 09:00] MED LIST changes: -CATHETER FLUSH 10 ML SYR IVP PRN; +HEParin 1000 UNIT/ML (10ML VIAL) FOR BOLUS ONE; +LIDOCAINE 1% INJ 20 ML VIAL ONE; +METF-397 PO; +MIDAZOLAM 5 MG/5 ML (VERSED) VIAL ONE; +NITRO DRIP 25000 MCG/D5W 250 ML IV ONE; +NS IV 1000 ML 1,000 ML IV SCH; +NS IV 1000 ML 1,000 ML ONE; +VERAPAMIL 5 MG/2 ML (CALAN) VIAL IV ONE; +fentaNYL INJ 100 MCG/2 ML AMP ONE
== END 2021-11-22 11:25 | disposition home or self-care (01) ==
LOC: CATH 09:00 → SDC 09:03 → CATH 11:25
PROVIDERS: ATTEND Internal Medicine Cardiovascular Disease
DX: I25.10 Atherosclerotic heart disease of native coronary artery without angina pectoris (principal); I10 Essential (primary) hypertension; I44.7 Left bundle-branch block, unspecified; E78.5 Hyperlipidemia, unspecified; E11.9 Type 2 diabetes mellitus without complications; Z90.89 Acquired absence of other organs; Z95.1 Presence of aortocoronary bypass graft; Z79.899 Other long term (current) drug therapy; Z79.84 Long term (current) use of oral hypoglycemic drugs
CPT/HCPCS: 71045; 80053; 80061; 81000; 85027; 85610; 85730; 87081; 93005; 93458; C1894; 36415